=== PATIENT | male | born 1925 | race Caucasian/White ===

== ENCOUNTER 2016-07-21 11:31 | Observation (INO) | payer MEDICARE, BC ==
[2016-07-18 17:33] LABS: ASCORBIC ACID (UR NOT ORDER) NEG (NEG); BILIRUBIN, URINE NEGATIVE (NEG); KETONE, URINE NEGATIVE (NEG); LEUKOCYTE ESTERASE(NOT OR LARGE (NEG)
[2016-07-18 17:34] LABS: WBC (NOT ORDERED) (RFLEX) > 182 (0-5)
--- NOTE | ~2016-07-21 | OP ---
Record Of Operation [facility] [address] [place]. [address] NAME: EDWIN RIVER : [birth year] STATUS : ADM Erica PAT#: [id number] AGE: 89 ADM/REG DATE : 07/21/16 MR#: [id number] REPORT SERV DATE: 07/21/16 DICTATED BY: VISHNU NICOLE JR. DATE: 07/21/16 REPORT STATUS : Draft TRANSCRIBED BY: MODL DATE: 07/21/16 DATE OF PROCEDURE: 07/21/2016 SURGEON: Vishnu Nicole M.D. 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 POSTOPERATIVE DIAGNOSIS: Prostatic urethral transitional cell carcinoma, with regrowth of right lateral lobe. PROCEDURE PERFORMED: Cystoscopy, bilateral retrograde pyelogram, resection of prostatic urethral TCC, and re-TUR of the right prostatic lobe. COMPLICATIONS: None. CONSULTATIONS: None. SPECIMENS: 1. A) prostatic urethra. 2. B) prostatic urethra. A is the superficial mucosal layer and then prostatic urethra B is the re-TUR of the right prostatic ureteral lobe. ESTIMATED BLOOD LOSS: None. INDICATION: Mr. River is an 89-year-old gentleman, who comes today for TUR of a fairly large area of TCC in his prostatic urethra or at least that is what it appears to be. He has a history of TCC of the bladder and a history of TURP in the past. Upon cystoscopy in the office, he had what appeared to be a recurrent TCC in the prostatic urethra, with regrowth of the right lateral lobe. The median and left lateral lobes appeared to be well resected. He comes today for removal of the right lateral lobe along with his TCC. PROCEDURE IN DETAIL: After the patient was identified and proper informed consent was obtained, he was taken to the operating room. General anesthesia was performed without complication using an endotracheal tube. He was then prepped and draped in normal sterile fashion in the lithotomy position. Cystoscopic examination of the urethra and bladder were performed. The penile and bulbous urethras were normal. The prostatic urethra again showed a TUR defect of the left lobe and median lobe. However, the right side had regrown into the central portion of the lumen along with this area of papillary tumor, approximately 3 to 4 cm in size. The bladder neck was not involved. The bladder mucosa appeared normal. Both ureteral orifices were in the normal position and normal size. Retrograde pyelograms bilaterally were performed and the ureters were successfully visualized with a normal course and caliber to the right and left. The collecting system was also normal without filling defect or evidence of obstruction. Both systems were drained adequately within a five minute period of time. I then removed the cystoscope and replaced it with a resectoscope, Record Of Operation [facility] [address] [place]. [address] NAME: EDWIN RIVER : [birth year] STATUS : ADM Erica PAT#: [id number] AGE: 89 ADM/REG DATE : 07/21/16 MR#: [id number] REPORT SERV DATE: 07/21/16 DICTATED BY: VISHNU NICOLE JR. DATE: 07/21/16 REPORT STATUS : Draft TRANSCRIBED BY: SEPIDEH DATE: 07/21/16 26-Qatari and sized with yellow loop. I resected the superficial area and sent that as specimen A along the right prostatic urethra, and then I performed a re-TURP of the right lateral lobe down to surgical capsule from the bladder neck to the verumontanum. This was labeled prostatic urethra B. I cauterized the area using electrocautery, once, I was satisfied that hemostasis was good. I removed the cystoscope from the bladder and placed a 22-Qatari three-way Zelaya catheter to light traction with 40 mL in the balloon. The patient was awakened in the operating room and transferred to the postanesthesia care in stable condition. BIANCA/SEPIDEH Vishnu Nicole Jr., M.D. / [id number] CC: Vishnu Nicole Jr., M.D.
[~2016-07-21 11:31] MED LIST: ADVIL PO; ASAB PO; FLOMAX4 PO; GLUCCHONDR PO; K-TABS10 MEQ PO; LORT7 PO; LORTAB 5 PO; PROLOP100 PO
[2016-07-21 12:43] LABS: HEMATOCRIT 44.5 % (40.0-51.0); HEMOGLOBIN 14.8 g/dL (13.6-17.8)
[2016-07-22] MEDS ORDERED: NORCO1 TA2 PO (08:32)
== END 2016-07-22 11:20 | disposition home or self-care (01) ==
LOC: SDC 11:31 → SDC/OF 14:22 → 4SO 15:34
PROVIDERS: Urology
PROC: 0VB08ZZ Excision of Prostate, Via Natural or Artificial Opening Endoscopic (ICD-10-PCS; principal; 2016-07-21 12:45)
DX: C61 Malignant neoplasm of prostate (principal); M19.90 Unspecified osteoarthritis, unspecified site; Z86.73 Personal history of transient ischemic attack (TIA), and cerebral infarction without residual deficits; Z86.718 Personal history of other venous thrombosis and embolism; Z88.1 Allergy status to other antibiotic agents; Z96.641 Presence of right artificial hip joint; Z98.890 Other specified postprocedural states; Z87.442 Personal history of urinary calculi
CPT/HCPCS: 74420; 81001; 85014; 85018; 87086; 88305; 93005; 96372; A9270-GY; C1758; G0378; J2405; J2710; J3010; Q9967